=== PATIENT | female | born 1965 ===

== ENCOUNTER 2018-02-27 06:08 | Inpatient (IN) | payer OTHER ==
[2018-02-25 11:07] VITALS: BMI 28.1
[2018-02-27] MEDS ORDERED: Methylene Blue 10 mg/mL(10ml) IV ONE (07:16)
[2018-02-27] MEDS ORDERED: Bupivacaine 0.5% Inj(30mL) ONE (07:16)
[2018-02-27] MEDS ORDERED: SULFANILAMIDE (AVC) VAG CREAM VG ONE (07:18)
[2018-02-27] MEDS ORDERED: Lactated Ringer's 1,000 ML IV ONE ×3 (07:30→10:40)
[2018-02-27] MEDS ORDERED: Midazolam 2 MG/2 ML VIAL ONE (07:32)
[2018-02-27] MEDS ORDERED: Propofol 10 mg/ml Inj (20 ML) ONE (07:32)
[2018-02-27] MEDS ORDERED: ePHEDrine 50 mg/ml Inj ONE (07:33)
[2018-02-27] MEDS ORDERED: Succinylcholine 200 mg/10 ml Inj IV ONE (07:33)
[2018-02-27] MEDS ORDERED: Rocuronium 10 mg/ml (5 ml) ONE (07:33)
[2018-02-27] MEDS ORDERED: Lidocaine 4% (Laryng-O-Jet) Kit MM ONE (07:34)
[2018-02-27] MEDS ORDERED: Dexamethasone 4 mg/1 ml ONE (08:57)
[2018-02-27] MEDS ORDERED: Desflurane Inhalation Anesthetic Liq (240 ml) ONE (09:16)
[2018-02-27] MEDS: SULFANILAMIDE (AVC) VAG CREAM VG ONE ×2 (10:29→11:00)
[2018-02-27] MEDS ORDERED: HEMOSTATIC MATRIX 10 ML DIS.NEEDLE TOP ONE ×2 (10:30→10:48)
[2018-02-27] MEDS ORDERED: Neostigmine 1:1000 (1 mg/ml) Inj ONE (10:56)
[2018-02-27] MEDS ORDERED: Lactated Ringer's 1,000 ML IV SCH (11:15)
[2018-02-27] MEDS ORDERED: HYDROmorphone 0.5 mg/0.5 ml ISec IVP PRN (11:29)
[2018-02-27 12:18] LABS: HEMOGLOBIN 12.4 g/dL (12.0-16.0); MEAN CELL VOLUME 87.9 fl (81.0-99.0); MEAN CORPUSCULAR HEMOGLOBIN 28.7 pg (27.0-31.0); MEAN CORPUSCULAR HGB CONC 32.7 g/dL (33.0-37.0); RBC 4.31 Mil/uL (3.80-5.20); RED CELL DISTRIBUTION WIDTH 15.2 % (11.5-14.5)
[2018-02-27] MEDS ORDERED: Morphine 4 MG/ML VIAL ONE ×3 (12:58→13:28)
[2018-02-27] MEDS ORDERED: Morphine 4 MG/ML VIAL IVP PRN (14:00)
[2018-02-27] MEDS ORDERED: Sodium Chloride 0.9% 100 ML ONE (17:01)
[2018-02-27] MEDS ORDERED: Iodixanol 320 MG/ML 100 ML BOTTLE IV ONE (17:02)
--- NOTE | 2018-02-27 17:21 | PCM.RRT ---
<Loan Velasco - Last Filed: 02/27/18 17:51> I.Reason for MILIEU THERAPIST - A) Acute Change in Patient: (Select all that apply): Chest Pain Subjective: 52 yo F, s/p hysterectomy this am, had MILIEU THERAPIST called due to chest pain. On arrival, pt in bed, able to speak, described chest pain as radiating to the back. Vital signs: RIGHT arm BP: 144/93, LEFT arm BP: 144/87, HR 117, O2 sat 99% on 2L NC. EKG done at bedside showed sinus tachycardia, as well as flattening of multiple leads 0.4 mg SL nitroglycerin Assessment: 52 yo F, s/p hysterectomy this am, MILIEU THERAPIST called due to chest pain. Equal BP in both arms. Pt awake, alert. Plan: CBC, CMP, troponin collected during MILIEU THERAPIST CT angio PE protocol trend 2 additional troponins Q6H transfer to telemetry floor Case discussed with hospitalist Dr. Blanc who was present during MILIEU THERAPIST. <Paula Blanc - Last Filed: 03/05/18 21:29> MILIEU THERAPIST Nurse Assessment - Vital Signs Vital Signs: Rapid Response Vital Sign Blood Pressure 144/93 Pulse Rate 117 Respiratory Rate 22 Oxygen Saturation 99 - Vital Signs at end of MILIEU THERAPIST Vital Signs at end of MILIEU THERAPIST: Rapid Response End Vital Sign Blood Pressure 144/87 Pulse Rate 105 Respiratory Rate 20 O2 Sat by Pulse Oximetry 99 Attending/Attestation - Attestation I have personally seen and examined this patient.: Yes I have fully participated in the care of the patient.: Yes I have reviewed all pertinent clinical information, including history, physical exam and plan: Yes
[2018-02-27 17:31] LABS: HEMOGLOBIN 12.3 g/dL (12.0-16.0); MEAN CELL VOLUME 88.1 fl (81.0-99.0); MEAN CORPUSCULAR HGB CONC 32.9 g/dL (33.0-37.0); RBC 4.26 Mil/uL (3.80-5.20); RED CELL DISTRIBUTION WIDTH 15.4 % (11.5-14.5); WHITE BLOOD COUNT 11.7 K/uL (4.8-10.8)
[2018-02-27 17:51] LABS: ALB/GLOB RATIO 1.2 (1.0-2.1); ALBUMIN 3.9 g/dL (3.5-5.0); ALT/SGPT 27 U/L (9-52); AST/SGOT 23 U/L (14-36); BLOOD UREA NITROGEN 11 mg/dl (7-17); CALCIUM 8.6 mg/dL (8.4-10.2); GFR AFRICAN-AMERICAN > 60; GFR NON-AFRICAN AMERICAN > 60
--- NOTE | 2018-02-27 18:02 | CT ---
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 TECHNIQUE: Axial computed tomography images were obtained of the chest in the pulmonary arterial phase of enhancement. Coronal and sagittal reformatted images were created and reviewed. Intravenous contrast dose: Visipaque 320, 80 cc Radiation dose: Total exam DLP = 391.03 mGy-cm. This CT exam was performed using one or more of the following dose reduction techniques: Automated exposure control, adjustment of the mA and/or kV according to patient size, and/or use of iterative reconstruction technique. FINDINGS: PULMONARY ARTERIES: Unremarkable. No pulmonary embolism. AORTA: No acute findings. No thoracic aortic aneurysm. LUNGS: Bilateral basilar atelectasis appreciated there is no infiltrate identified. PLEURAL SPACES: No definite pleural effusion. However, trace emphysematous changes seen in the nondependent mediastinum as well as the left anterior chest wall infiltrating into the pectoralis muscle somewhat. Trace perihepatic/free air is also appreciated radiologists on certain. Consider recent instrumentation or trauma. Further clinical correlation is advised. HEART: No cardiomegaly or pericardial effusion. LYMPH NODES: No lymphadenopathy. BONES, CHEST WALL: Unremarkable. No fracture or destructive lesion OTHER FINDINGS: Unremarkable. IMPRESSION: 1. No CT evidence of pulmonary embolus at this time. 2. Limited bilateral basilar atelectasis. No definite acute infiltrate. 3. Trace mediastinal and upper abdominal peritoneal gas likely secondary to laparoscopic hysterectomy performed earlier today. Emphysematous changes are mild at the left pectoralis region as well with similar change identified at the left upper quadrant and lateral abdominal/chest wall, likely through this same etiology as mediastinal/upper abdominal peritoneal gas. If patient's symptoms get worse consider follow-up abdomen pelvis CT as clinically warranted. Findings discussed by telephone with Nurse Leger with written down and read back verification at [address] [place] [address] 02/27/2018 5:59 p.m..
[2018-02-27] MEDS: Lactated Ringer's 1,000 ML IV SCH ×2 (18:46→19:30)
[2018-02-27] MEDS: Oxycodone/Acetaminophen 5/325 mg Tab PO PRN ×2 (18:46→22:13)
[2018-02-27 21:18] LABS: PROTHROMBIN TIME 11.4 Seconds (9.8-13.1)
[2018-02-27 21:19] LABS: PARTIAL THROMBOPLASTIN TIME 27.7 Seconds (25.6-37.1)
[2018-02-27] MEDS ORDERED: Potassium Chloride 20 mEq ER Tab PO ONE (22:08)
[2018-02-28] MEDS: Oxycodone/Acetaminophen 5/325 mg Tab PO PRN ×3 (03:11→20:20)
[2018-02-28] MEDS: Lactated Ringer's 1,000 ML IV SCH (03:12)
[2018-02-28 08:03] LABS: BLOOD UREA NITROGEN 9 mg/dl (7-17); CALCIUM 8.9 mg/dL (8.4-10.2); GFR AFRICAN-AMERICAN > 60; GFR NON-AFRICAN AMERICAN > 60
--- NOTE | 2018-02-28 14:20 | RAD ---
HISTORY: pneumomediastinum COMPARISON: Chest radiograph dated 02/25/2018 TECHNIQUE: Chest PA and lateral FINDINGS: LUNGS: Low lung volumes. No active pulmonary disease. PLEURA: No significant pleural effusion identified. No pneumothorax apparent. CARDIOVASCULAR: Normal. OSSEOUS STRUCTURES: No significant abnormalities. VISUALIZED UPPER ABDOMEN: Normal. OTHER FINDINGS: None. IMPRESSION: No active disease.
--- NOTE | 2018-02-28 15:07 | CP.PCM.HP ---
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 During the B[employer] OPER[employer], the pt was examined and worked up with CT PE protocol which was negative. Serial troponins were done which were negative. The pt was also monitored overnight on telemetry unit. Currently, the pt denies any chest pain. The patient has had a stress test in the past by her cinnamon grinder about 1 year ago, which was normal as per patient. Denies any trauma to the chest, cough , fever, sob, lightheadedness or palpitations. Present on Admission - Present on Admission Any Indicators Present on Admission: No Review of Systems - Review of Systems All systems: reviewed and no additional remarkable complaints except (as stated) - Cardiovascular Cardiovascular: As Per HPI, Chest Pain. absent: Diaphoresis, Dyspnea, Pain Radiating to Arm/Neck/Jaw, Lightheadedness, Palpitations, Syncope - Respiratory Respiratory: As Per HPI Past Patient History - Past Medical History & Family History Past Medical History?: Yes - Past Social History Smoking Status: Never Smoked - CARDIAC Hx Cardiac Disorders: No - PULMONARY Hx Respiratory Disorders: No - NEUROLOGICAL Hx Neurological Disorder: No - HEENT Hx HEENT Problems: No - RENAL Hx Chronic Kidney Disease: No - ENDOCRINE/METABOLIC Hx Endocrine Disorders: Yes Hx Hyperthyroidism: Yes Hx Hypothyroidism: Yes - HEMATOLOGICAL/ONCOLOGICAL Hx Blood Disorders: Yes Hx Hepatitis C: Yes - INTEGUMENTARY Hx Dermatological Problems: No - MUSCULOSKELETAL/RHEUMATOLOGICAL Hx Musculoskeletal Disorders: Yes Hx Arthritis: Yes (neck,back) Hx Herniated Disk: Yes - GASTROINTESTINAL Hx Gastrointestinal Disorders: No - GENITOURINARY/GYNECOLOGICAL Hx Genitourinary Disorders: No - PSYCHIATRIC Hx Psychophysiologic Disorder: No Hx Substance Use: No - SURGICAL HISTORY Hx Surgeries: Yes Hx Section: Yes Other/Comment: fibroma removed - ANESTHESIA Hx Anesthesia: Yes Hx Anesthesia Reactions: Yes (nausea,vomiting) Hx Malignant Hyperthermia: No Has any member of the family had a problem w/ anesthesia?: No Meds Home Medications: Home Medication List Medication Instructions Recorded Confirmed Type Cephalexin [Keflex] 500 mg PO TID 7 Days capsule 03/01/18 Rx Docusate Sodium [Colace] 100 mg PO BID #90 capsule 03/01/18 Rx Ibuprofen [Motrin Tab] 800 mg PO Q6H #40 tab 03/01/18 Rx Levothyroxine [Synthroid] 75 mcg PO DAILY@0630 tab 03/01/18 Rx oxyCODONE/Acetaminophen [Percocet 1 tab PO Q4 PRN #30 tab 03/01/18 Rx 5/325 mg Tab] Allergies/Adverse Reactions: Allergies Allergy/AdvReac Type Severity Reaction Status Date / Time aspirin Allergy NAUSEA Verified 02/27/18 06:38 Physical Exam - Constitutional Appears: Well, No Acute Distress - Head Exam Head Exam: ATRAUMATIC, NORMOCEPHALIC - Eye Exam Eye Exam: EOMI, Normal appearance, PERRL Pupil Exam: NORMAL ACCOMODATION - ENT Exam ENT Exam: Mucous Membranes Moist, Normal Exam - Neck Exam Neck exam: Positive for: Normal Inspection - Respiratory Exam Respiratory Exam: Clear to Auscultation Bilateral, NORMAL BREATHING PATTERN - Cardiovascular Exam Cardiovascular Exam: REGULAR RHYTHM, +S1, +S2 - GI/Abdominal Exam GI & Abdominal Exam: Normal Bowel Sounds, Tenderness (slight, suprapubic area of incision) - Rectal Exam Rectal Exam: Deferred - Exam Additional comments: Suprapubic pain, slight redness at surgical site - Extremities Exam Extremities exam: Positive for: full ROM, normal inspection - Back Exam Back exam: NORMAL INSPECTION - Neurological Exam Neurological exam: Alert, Oriented x3 - Psychiatric Exam Psychiatric exam: Normal Affect, Normal Mood - Skin Skin Exam: Normal Color, Warm Results - Vital Signs Recent Vital Signs: Last Vital Signs Temp 98.4 F 02/28/18 12:00 Pulse 68 02/28/18 12:00 Resp 18 02/28/18 12:00 BP 115/72 02/28/18 12:00 Pulse Ox 96 02/28/18 12:00 - Labs Result Diagrams: 03/01/18 09:21 03/01/18 09:21 Labs: Laboratory Results - last 24 hr 02/27/18 02/27/18 02/27/18 16:50 17:10 17:10 WBC 11.7 H RBC 4.26 Hgb 12.3 Hct 37.5 MCV 88.1 MCH 29.0 MCHC 32.9 L RDW 15.4 H Plt Count 248 PT INR APTT D-Dimer, Quantitative Sodium 140 Potassium 3.5 L Chloride 104 Carbon Dioxide 24 Anion Gap 16 BUN 11 Creatinine 0.6 L Est GFR ( Amer) > 60 Est GFR (Non-Af Amer) > 60 POC Glucose (mg/dL) 146 H Random Glucose 151 H Calcium 8.6 Total Bilirubin 0.4 AST 23 ALT 27 Alkaline Phosphatase 59 Troponin I < 0.0120 Total Protein 7.2 Albumin 3.9 Globulin 3.3 Albumin/Globulin Ratio 1.2 02/27/18 02/27/18 02/28/18 20:46 21:38 06:55 WBC RBC Hgb Hct MCV MCH MCHC RDW Plt Count PT 11.4 INR 1.0 APTT 27.7 D D-Dimer, Quantitative 702 H Sodium 141 Potassium 3.9 Chloride 105 Carbon Dioxide 26 Anion Gap 14 BUN 9 Creatinine 0.6 L Est GFR ( Amer) > 60 Est GFR (Non-Af Amer) > 60 POC Glucose (mg/dL) Random Glucose 89 Calcium 8.9 Total Bilirubin AST ALT Alkaline Phosphatase Troponin I < 0.0120 < 0.0120 Total Protein Albumin Globulin Albumin/Globulin Ratio - EKG Data EKG comments: <Conclusion> Normal sinus rhythm with sinus arrhythmia - Imaging and Cardiology CT scan - chest Additional comment: PROCEDURE: CT Chest with contrast (Pulmonary Angiogram) 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 TECHNIQUE: Axial computed tomography images were obtained of the chest in the pulmonary arterial phase of enhancement. Coronal and sagittal reformatted images were created and reviewed. Intravenous contrast dose: Visipaque 320, 80 cc Radiation dose: Total exam DLP = 391.03 mGy-cm. This CT exam was performed using one or more of the following dose reduction techniques: Automated exposure control, adjustment of the mA and/or kV according to patient size, and/or use of iterative reconstruction technique. FINDINGS: PULMONARY ARTERIES: Unremarkable. No pulmonary embolism. AORTA: No acute findings. No thoracic aortic aneurysm. LUNGS: Bilateral basilar atelectasis appreciated there is no infiltrate identified. PLEURAL SPACES: No definite pleural effusion. However, trace emphysematous changes seen in the nondependent mediastinum as well as the left anterior chest wall infiltrating into the pectoralis muscle somewhat. Trace perihepatic/free air is also appreciated radiologists on certain. Consider recent instrumentation or trauma. Further clinical correlation is advised. HEART: No cardiomegaly or pericardial effusion. LYMPH NODES: No lymphadenopathy. BONES, CHEST WALL: Unremarkable. No fracture or destructive lesion OTHER FINDINGS: Unremarkable. IMPRESSION: 1. No CT evidence of pulmonary embolus at this time. 2. Limited bilateral basilar atelectasis. No definite acute infiltrate. 3. Trace mediastinal and upper abdominal peritoneal gas likely secondary to laparoscopic hysterectomy performed earlier today. Emphysematous changes are mild at the left pectoralis region as well with similar change identified at the left upper quadrant and lateral abdominal/chest wall, likely through this same etiology as mediastinal/upper abdominal peritoneal gas. If patient's symptoms get worse consider follow-up abdomen pelvis CT as clinically warranted. Findings discussed by telephone with Nurse Leger with written down and read back verification at [address] [place] [address] 02/27/2018 5:59 p.m.. Chest x-ray Additional comment: TECHNIQUE: Chest PA and lateral FINDINGS: LUNGS: Low lung volumes. No active pulmonary disease. PLEURA: No significant pleural effusion identified. No pneumothorax apparent. CARDIOVASCULAR: Normal. OSSEOUS STRUCTURES: No significant abnormalities. VISUALIZED UPPER ABDOMEN: Normal. OTHER FINDINGS: None. IMPRESSION: No active disease. Assessment & Plan - Assessment and Plan (Free Text) Assessment: 52 year old female with atypical chest pain Plan: Cardiac enzymes negative Echo shows normal LV function Cardiology eval deficient in any acute cardiovascular finding Continue tele monitoring If pt remains stable may d/c in am and f/u with private cinnamon grinder Thank you for allowing me to participate in the care of your patient.
--- NOTE | 2018-02-28 15:17 | CARD ---
APPROVED REPORT EXAM: Two-dimensional and M-mode echocardiogram with Doppler and color Doppler. Other Information Quality : AverageRhythm : INDICATION Chest Pain 2D DIMENSIONS IVSd1.21 (0.7-1.1cm)LVDd3.93 (3.9-5.9cm) PWd1.27 (0.7-1.1cm)LVDs2.98 (2.5-4.0cm) FS (%) 24.1 %LVEF (%)55.0 (>50%) M-Mode DIMENSIONS Left Atrium (MM)3.30 (2.5-4.0cm)IVSd1.28 (0.7-1.1cm) Aortic Root3.20 (2.2-3.7cm)LVDd4.23 (4.0-5.6cm) Aortic Cusp Exc.2.08 (1.5-2.0cm)PWd1.12 (0.7-1.1cm) FS (%) 29 %LVDs2.99 (2.0-3.8cm) Mitral Valve MV E Alwzgbgj92.2cm/sMV E Peak Gr.87mmHgMV DECEL [id number] MV A Iaythllp57.8cm/sMV LGB90gqF/A ratio0.9 MVA (PHT)3.39cm2 TDI Medial E' Peak V8.64cm/sE/Lateral E'0.0E/Medial E'8.9 Pulmonary Valve PV Peak Akvliqxl66.8cm/s Tricuspid Valve TR Peak Jlqhtfeh986nx/sTR Peak Gr.25mmHg LEFT VENTRICLE The left ventricle is normal size. There is borderline concentric left ventricular hypertrophy. The left ventricular function is normal. The left ventricular ejection fraction is within the normal range. There is normal LV segmental wall motion. Transmitral Doppler flow pattern is Grade I-abnormal relaxation pattern. RIGHT VENTRICLE The right ventricle is normal size. There is normal right ventricular wall thickness. The right ventricular systolic function is normal. ATRIA The left atrium size is normal. The right atrium size is normal. AORTIC VALVE The aortic valve is normal in structure. No aortic regurgitation is present. There is no aortic valvular stenosis. MITRAL VALVE The mitral valve is normal in structure. There is no mitral valve stenosis. Mitral regurgitation is trace. TRICUSPID VALVE The tricuspid valve is normal in structure. There is mild tricuspid regurgitation. PULMONIC VALVE The pulmonary valve is normal in structure. There is no pulmonic valvular regurgitation. GREAT VESSELS The aortic root is normal in size. The IVC is normal in size and collapses >50% with inspiration. PERICARDIAL EFFUSION The pericardium appears normal. <Conclusion> The left ventricle is normal size. There is borderline concentric left ventricular hypertrophy. The left ventricular function is normal. The left ventricular ejection fraction is within the normal range. There is normal LV segmental wall motion. Transmitral Doppler flow pattern is Grade I-abnormal relaxation pattern. There is mild tricuspid regurgitation.
--- NOTE | 2018-02-28 15:51 | CARD ---
APPROVED REPORT EKG Measurement Heart [id number] <Conclusion> Sinus tachycardia ST & T wave abnormality, consider anterior ischemia Abnormal ECG
--- NOTE | 2018-02-28 22:26 | CON ---
DATE: HISTORY OF PRESENT ILLNESS: The patient is a 52-year-old female who has no prior cardiac history. She underwent da Angelica hysterectomy with bilateral salpingo-oophorectomy for postmenopausal bleeding. The patient postoperatively reported chest pain that is tightness in nature. The patient is unaware of any prior cardiac history in the past and at this time, she denies any chest pain. There was no reported or ventricular arrhythmia overnight. ECG angio of the chest was negative for pulmonary embolism. SOCIAL HISTORY: Nonsmoker and nondrinker. MEDICATIONS: The patient was on thyroid replacement therapy at home. CURRENT HOSPITAL MEDICATION: Lipitor 20 mg once a day, Lopressor 25 mg twice a day. The patient refused to take aspirin last night. PHYSICAL EXAMINATION GENERAL: The patient is a middle-aged female who does not appear to be in any acute distress. VITAL SIGNS: Blood pressure 115/75, heart rate 109, temperature 97.4, and respirations 18. HEENT: Normocephalic. NECK: No JVD. CHEST: Clear. HEART: S1 and S2 regular. ABDOMEN: Soft. EXTREMITIES: No edema. LABORATORY DATA: Three sets of troponins are within normal limits. Today's SMA-7 was within normal limits except for creatinine 0.6. Hemoglobin and hematocrit yesterday was 12.3 and 37.5 that was postoperatively. White count 11.7, platelet 148. D-dimer was elevated at 702. PT, PTT and INR are within normal limits. Chest CT angio; no evidence of pulmonary embolism, limited bilateral bibasal atelectases. No acute infiltrates. Trace mediastinal and upper abdominal peritoneal gas likely secondary to laparoscopic hysterectomy performed earlier today. EKG revealed sinus rhythm consider anterior ischemic changes. ASSESSMENT: 1. Chest pain, myocardial infarctions ruled out. 2. Status post hysterectomy and bilateral salpingo-oophorectomy. 3. Consider pneumomediastinum underlying cause for chest pain. RECOMMENDATIONS: Continue current Lopressor and Lipitor. Obtain chest x-ray PA and lateral and repeat 12-lead EKG. I will review the echocardiographic study performed today. Ramon Painting MD
--- NOTE | 2018-03-01 00:10 | CARD ---
APPROVED REPORT EKG Measurement Heart [id number] ID [id number] <Conclusion> Normal sinus rhythm with sinus arrhythmia Nonspecific T wave abnormality Abnormal ECG
[2018-03-01 10:08] LABS: BASO # 0.1 K/uL (0.0-0.2); EOS # 0.1 K/uL (0.0-0.7); EOS % 1.4 % (0.0-4.0); HEMOGLOBIN 11.7 g/dL (12.0-16.0); LYMPH % 38.5 % (20.0-40.0); MEAN CELL VOLUME 88.6 fl (81.0-99.0); MEAN CORPUSCULAR HEMOGLOBIN 29.2 pg (27.0-31.0); MEAN CORPUSCULAR HGB CONC 32.9 g/dL (33.0-37.0); MEAN PLATELET VOLUME 8.1 fl (7.2-11.7); MONO # 0.5 K/uL (0.0-0.8); MONO % 7.1 % (0.0-10.0); RBC 3.99 Mil/uL (3.80-5.20); RED CELL DISTRIBUTION WIDTH 15.5 % (11.5-14.5); WHITE BLOOD COUNT 7.7 K/uL (4.8-10.8)
[2018-03-01 10:24] LABS: BLOOD UREA NITROGEN 12 mg/dl (7-17); CALCIUM 8.7 mg/dL (8.4-10.2); GFR AFRICAN-AMERICAN > 60; GFR NON-AFRICAN AMERICAN > 60
[2018-03-01] MEDS ORDERED: Levothyroxine 75 MCG TAB PO SCH (10:30)
[2018-03-01 11:18] LABS: HDL CHOLESTEROL 43 MG/DL (30-70)
[2018-03-01 11:29] LABS: LDL CHOLESTEROL 61 mg/dL (0-129)
[2018-03-01 12:30] VITALS: PULSE 67; TEMP 98.2
--- NOTE | 2018-03-01 14:45 | PN ---
DATE: SUBJECTIVE: The patient denies chest pain, abdominal pain or back pain. PHYSICAL EXAMINATION: VITAL SIGNS: Blood pressure of 143/75, heart rate of 64, temperature of 98.1, and respirations of 18. HEENT: Normocephalic. CHEST: Clear. HEART: S1 and S2 regular. EXTREMITIES: No edema. LABORATORY DATA: Hemoglobin and hematocrit are 11.7 and 35.4. White count is 7.7 and platelet count is 234,000. Today's SMA-7 is within normal limits except for glucose of 140. Chest x-ray PA and lateral; no active disease. ASSESSMENT: 1. Chest pain, myocardial infarction ruled out. 2. Evidence of pneumomediastinum on chest CT scan mostly related to the patient's recent hysterectomy and bilateral oophorectomy. 3. Mild hypertriglyceridemia. RECOMMENDATIONS: Continue current Lipitor and Synthroid. Discontinue Lopressor as the patient was bradycardic yesterday. The patient refuses to take aspirin. No further cardiac workup is indicated at this time. Consider an outpatient stress test after the patient's recovery from her surgery. Ramon Painting MD
[2018-03-01 17:22] VITALS: BP 144/82; RESP 19; O2SAT 95
--- NOTE | 2018-03-01 17:36 | CP.PCM.DIS ---
Provider - Provider Date of Admission: 02/27/18 11:11 Attending physician: Radha Valles MD Primary care physician: Mayelin Montejo MD Consults: Cardiologia: Dr Painting Time Spent in preparation of Discharge (in minutes): 30 Diagnosis - Discharge Diagnosis (1) Status post hysterectomy with oophorectomy Status: Acute Comment: -DaVinci procedure on 02/27/18. -Pt presented chest pain after procedure, was evaluated by cardiology who cleared pt for discharge. -Rx for Colace, Percocet, Motrin and Keflex upon discharge. -Will f/u with Dr Valles within 2 weeks. Hospital Course - Lab Results Lab Results: Most Recent Lab Values WBC 7.7 K/uL (4.8-10.8) 03/01/18 09:21 RBC 3.99 Mil/uL (3.80-5.20) 03/01/18 09:21 Hgb 11.7 g/dL (12.0-16.0) L 03/01/18 09:21 Hct 35.4 % (34.0-47.0) 03/01/18 09:21 MCV 88.6 fl (81.0-99.0) 03/01/18 09:21 MCH 29.2 pg (27.0-31.0) 03/01/18 09:21 MCHC 32.9 g/dL (33.0-37.0) L 03/01/18 09:21 RDW 15.5 % (11.5-14.5) H 03/01/18 09:21 Plt Count 234 K/uL (130-400) 03/01/18 09:21 MPV 8.1 fl (7.2-11.7) 03/01/18 09:21 Neut % (Auto) 52.0 % (50.0-75.0) 03/01/18 09:21 Lymph % (Auto) 38.5 % (20.0-40.0) 03/01/18 09:21 Keith % (Auto) 7.1 % (0.0-10.0) 03/01/18 09:21 Eos % (Auto) 1.4 % (0.0-4.0) 03/01/18 09:21 Baso % (Auto) 1.0 % (0.0-2.0) 03/01/18 09:21 Neut # (Auto) 4.0 K/uL (1.8-7.0) 03/01/18 09:21 Lymph # (Auto) 3.0 K/uL (1.0-4.3) 03/01/18 09:21 Keith # (Auto) 0.5 K/uL (0.0-0.8) 03/01/18 09:21 Eos # (Auto) 0.1 K/uL (0.0-0.7) 03/01/18 09:21 Baso # (Auto) 0.1 K/uL (0.0-0.2) 03/01/18 09:21 PT 11.4 Seconds (9.8-13.1) 02/27/18 20:46 INR 1.0 (0.9-1.2) 02/27/18 20:46 APTT 27.7 Seconds (25.6-37.1) D 02/27/18 20:46 D-Dimer, Quantitative 702 ng/mlDDU (0-230) H 02/27/18 20:46 Sodium 143 mmol/l (132-148) 03/01/18 09:21 Potassium 4.1 MMOL/L (3.6-5.0) 03/01/18 09:21 Chloride 103 mmol/L (98-107) 03/01/18 09:21 Carbon Dioxide 29 mmol/L (22-30) 03/01/18 09:21 Anion Gap 15 (10-20) 03/01/18 09:21 BUN 12 mg/dl (7-17) 03/01/18 09:21 Creatinine 0.8 mg/dl (0.7-1.2) 03/01/18 09:21 Est GFR ( Amer) > 60 03/01/18 09:21 Est GFR (Non-Af Amer) > 60 03/01/18 09:21 POC Glucose (mg/dL) 146 mg/dL (65-110) H 02/27/18 16:50 Random Glucose 140 mg/dL (65-105) H 03/01/18 09:21 Calcium 8.7 mg/dL (8.4-10.2) 03/01/18 09:21 Total Bilirubin 0.4 mg/dl (0.2-1.3) 02/27/18 17:10 AST 23 U/L (14-36) 02/27/18 17:10 ALT 27 U/L (9-52) 02/27/18 17:10 Alkaline Phosphatase 59 U/L (38-126) 02/27/18 17:10 Troponin I < 0.0120 ng/mL (0.00-0.120) 02/28/18 06:55 Total Protein 7.2 G/DL (6.3-8.2) 02/27/18 17:10 Albumin 3.9 g/dL (3.5-5.0) 02/27/18 17:10 Globulin 3.3 gm/dL (2.2-3.9) 02/27/18 17:10 Albumin/Globulin Ratio 1.2 (1.0-2.1) 02/27/18 17:10 Triglycerides 153 mg/DL (0-149) H 03/01/18 10:28 Cholesterol 142 mg/dL (0-199) 03/01/18 10:28 LDL Cholesterol Direct 61 mg/dL (0-129) 03/01/18 10:28 HDL Cholesterol 43 MG/DL (30-70) 03/01/18 10:28 - Hospital Course Hospital Course: 52 y/o F with a PMHx of hypothyroidism presented to hospital for robotic hysterectomy on 02/27/18. Pt remained hospitalized due to an episode of severe chest pain after surgery. -Serum D-dimer was elevated; however, serum troponin, CT of chest, EKG, echocardiogram, CXR and repeated EKG were unremarkable. -Cardiology was consulted who reviewed labs and imaging tests, started her on metoprolol and Lipitor at first, Metoprolol d/c'ed dueto bradycardia yesterday 02/28/18, Lipitor remained until today 03/01/18. Developmental Therapist was contacted today by me who cleared patient for discharge home with the recommendation to f/ u with PCP and no need to add Lipitor as per treatment. -Pt stable, reportes feeling better, pain under control, tolerating PO, just d/c 'ed argueta. Will discharge pt after successful voiding later today. Dr Valles made aware. Case discussed with Radha Ochoa OBGYN. GTolentino PGY-1. - Date & Time of H&P Date of H&P: 02/27/18 Discharge Plan - Discharge Medications Prescriptions: Cephalexin [Keflex] 500 mg PO TID 7 Days capsule Docusate Sodium [Colace] 100 mg PO BID #90 capsule Ibuprofen [Motrin Tab] 800 mg PO Q6H #40 tab oxyCODONE/Acetaminophen [Percocet 5/325 mg Tab] 1 tab PO Q4 PRN #30 tab PRN Reason: Pain, Severe (8-10) - Follow Up Plan Condition: GOOD Disposition: HOME/ ROUTINE Instructions: Abdominal Hysterectomy (DC) Additional Instructions: -Por favor asistir a ordonez mir de seguimiento con ginecologa Dra Valles dentro de 2 semanas. -Por favor tambien de seguimiento con ordonez medico primario acerca de lo sucedido en esta hospitalizacion, lo mas pronto posible, a mas tardar dentro de 1 semana. -Seguir primo dieta rod, baja en grasas y jocelyne. -No marin movimientos bruscos, no levantar cosas pesadas, puede banarse y empezar ordonez david rutinaria de acuerdo a wilmar posibilidades sin forzar de ordonez cuerpo. -Rippey medicamentos para el dolor, motrin si dolor moderardo, percocet si el dolor es tracy. Colace para facilitar defecacion, y Keflex, antibiotico de forma preventiva para infeccion. -Si hay fiebre, dolor intolerable que no se calma con medicamentos, por favor ir immediatamente al salon de emergencias. Referrals: Mayelin Montejo MD [Primary Care Provider] -
--- NOTE | 2018-03-01 23:10 | CP.PCM.PN ---
Subjective - Date & Time of Evaluation Date of Evaluation: 03/01/18 Time of Evaluation: 09:50 - Subjective Subjective: Feels better, denies any chest pain. Denies sob, fever or chills Has some suprapubic pain at incision site Objective - Vital Signs/Intake and Output Vital Signs (last 24 hours): Temp Pulse Resp BP Pulse Ox 98.2 F 67 19 144/82 95 03/01/18 17:22 03/01/18 17:22 03/01/18 17:22 03/01/18 17:22 03/01/18 17:22 Intake and Output: 03/01/18 03/02/18 18:59 06:59 Output Total 1999 Balance -1999 - Labs Labs: 03/01/18 09:21 03/01/18 09:21 PT 11.4 Seconds (9.8-13.1) 02/27/18 20:46 INR 1.0 (0.9-1.2) 02/27/18 20:46 APTT 27.7 Seconds (25.6-37.1) D 02/27/18 20:46 - Constitutional Appears: Well, No Acute Distress - Head Exam Head Exam: ATRAUMATIC, NORMOCEPHALIC - Respiratory Exam Respiratory Exam: Clear to Ausculation Bilateral, NORMAL BREATHING PATTERN - Cardiovascular Exam Cardiovascular Exam: REGULAR RHYTHM, +S1, +S2 - GI/Abdominal Exam GI & Abdominal Exam: Tenderness (suprapubic pain), Normal Bowel Sounds - Neurological Exam Neurological Exam: Alert, Oriented x3 - Psychiatric Exam Psychiatric exam: Normal Affect, Normal Mood - Skin Skin Exam: Normal Color, Warm Assessment and Plan - Assessment and Plan (Free Text) Assessment: 52 year old female with atypical chest pain Plan: Cardiac work up has been negative Pt remains stable Will d/c home today 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
--- NOTE | 2018-04-08 08:35 | OP ---
PROCEDURE DATE: 02/27/2018 PREOPERATIVE DIAGNOSES: Symptomatic uterine fibroids, postmenopausal bleeding, chronic pelvic pain, failure with medical and surgical therapy. POSTOPERATIVE DIAGNOSES: Symptomatic uterine fibroids, postmenopausal bleeding, chronic pelvic pain, failure with medical and surgical therapy. PROCEDURE: Robotic total hysterectomy, bilateral salpingo-oophorectomy, lysis of adhesions as well as cystoscopy. SURGEON: Radha Valles MD. CLINICAL DATA ABSTRACTOR: Tammy Koch MD. TYPE OF ANESTHESIA: General. ESTIMATED BLOOD LOSS: 150 mL. COMPLICATIONS: None. DESCRIPTION OF PROCEDURE: The patient was taken to the operating room and given anesthesia to found adequate. She was then placed in dorsal lithotomy position, prepped and draped in a normal sterile fashion. A Taveras catheter was placed into the vagina. A weighted speculum was placed into the vagina as well. A single-tooth tenaculum was used to grab the anterior lip of the cervix. The cervical os was then dilated to approximately 8 cm with Mauricio dilators. Upon dilation, the medium-sized Vcare device was then utilized. Once that was in place and it was secure placement, all instruments were removed from the vagina and attention was then turned to the abdomen. In that particular instance, once that was performed, a Veress needle was placed in the abdominal cavity. Through the Veress needle, carbon dioxide was infused until pseudo-pneumoperitoneum was obtained. The Veress needle was then removed and a supraumbilical incision was extended. The trocar and the sleeve were then placed in the abdomen without any difficulty. The trocar was then removed and the robotic laparoscopy was then placed in the abdominal cavity. The pelvis was then examined. The uterus was found to be diffusely enlarged. Normal ovaries and tubes, but as far as the consent, she requested her ovaries to be removed together with her tubes. A local anesthesia was then instilled at the site of the other ports prior to placing the surgical port. Two 8 mm surgical ports were then placed just inferior to the umbilicus and lateral to the rectus abdominis muscle bilaterally. These ports were then put in the abdominal cavity under direct visualization. The maintenance assistant port was then placed just beneath ribs in the left upper quadrant of the abdomen. The da Angelica robot was then placed with the surgical port and the left arm was placed the plasma-kinetic device and the right with the hot scissors. Due to the fact that it was in that particular instance, the infundibular ligament was isolated on the left side, was cauterized with 3 consecutive areas with the PK. The infundibular ligament was then cut and the left adnexa was then from the pelvic sidewall using the PK and the hot scissors. Excellent hemostasis was noted. The round ligament on the left side was then cauterized and cut. The left side of the vesicouterine peritoneum was identified and formed the left side of the bladder flap. The uterine vascularization was then isolated and cauterized. Again, in that particular instance, then the right infundibular pelvic ligament was identified. It was then cauterized 3 times with the PK and cut. Excellent hemostasis was noted. The right ligament was then cauterized in 3 consecutive areas and cut with a PK. The vesicouterine peritoneum on the right side was then excised in a fashion forming what is known as a bladder flap. The bladder was then pushed down off the lower uterine segment without any difficulty. The uterine vascularization on the right side was then cauterized, excellent hemostasis was noted. The ring was identified anterior and an anterior colpotomy was then performed. The uterine vascularization was cauterized bilaterally as the colpotomy was extended. After complete circumscribing the scissors from the vaginal cuff, the uterus and the left and the right adnexa were removed through the vagina. In that particular instance, the vaginal cuff was closed with running V-Loc sutures. The pelvis was then irrigated copiously with normal saline. Excellent hemostasis was noted. In that particular instance, upon completion, the FloSeal was then placed at the vaginal cuff. Excellent hemostasis was noted. The 12-mm supraumbilical surgical port was removed and the incision was placed in layers with 2-0 Vicryl and the skin was closed with 4-0 Monocryl. All the surgical ports were removed under direct visualization. In that particular instance, indigo carmine was then given intravenously prior to performing the cystoscopy. Both ureteral orifices were identified. There was noted to be blue dye coming from both ureteral orifices. In that particular instance, once that was completed, the cystoscopy was then removed. All instruments from the vagina were then removed. The Taveras was placed back into the bladder and as far as vaginal packing was placed. All sponges, needles and instrument counts were correct x2. The patient was then taken to the recovery in stable condition and instructed to follow up in the office in approximately a week. Radha Valles MD
== END 2018-03-01 18:50 | disposition home or self-care (01) | DRG 743 ==
LOC: H.OPSURG 06:08 → H.MEDSURG1 11:11 → OBSVTOIN 11:11 → H.TEL 17:30
PROVIDERS: ADMIT Obstetrics & Gynecology; ATTEND Obstetrics & Gynecology
PROC: 0UT7FZZ Resection of Bilateral Fallopian Tubes, Via Natural or Artificial Opening With Percutaneous Endoscopic Assistance (ICD-10-PCS; 2018-02-27)
PROC: 0TJB8ZZ Inspection of Bladder, Via Natural or Artificial Opening Endoscopic (ICD-10-PCS; 2018-02-27)
PROC: 8E0W4CZ Robotic Assisted Procedure of Trunk Region, Percutaneous Endoscopic Approach (ICD-10-PCS; 2018-02-27)
PROC: 0UT9FZZ Resection of Uterus, Via Natural or Artificial Opening With Percutaneous Endoscopic Assistance (ICD-10-PCS; principal; 2018-02-27 07:45)
PROC: 0UT2FZZ Resection of Bilateral Ovaries, Via Natural or Artificial Opening With Percutaneous Endoscopic Assistance (ICD-10-PCS; 2018-02-27 07:45)
DX: D25.9 Leiomyoma of uterus, unspecified (principal); N95.0 Postmenopausal bleeding; N83.02 Follicular cyst of left ovary; G89.29 Other chronic pain; E03.9 Hypothyroidism, unspecified; E78.1 Pure hyperglyceridemia; J98.2 Interstitial emphysema; E05.90 Thyrotoxicosis, unspecified without thyrotoxic crisis or storm; M19.90 Unspecified osteoarthritis, unspecified site; R07.9 Chest pain, unspecified; R11.2 Nausea with vomiting, unspecified; Z86.19 Personal history of other infectious and parasitic diseases